=== PATIENT | female | born 1950 | race Caucasian/White ===

== ENCOUNTER 2019-06-29 03:47 | Outpatient (CLI) | payer MEDICARE, BC, SELFPAY ==
--- NOTE | 2019-06-29 11:24 | DI.MAMMO_ITS ---
SYMPTOMS/DIAGNOSIS: SCREENING, Z12.39 MAMMOGRAM: Mammograms were interpreted according to the usual protocol including computer analysis with CAD system, tomosynthesis and C view imaging. The breasts are of moderate density with fairly symmetrical distribution of fibroglandular tissue. No dominant mass or clumped microcalcification is identified in either breast. Current examination is compared with previous examinations including January 2015 and there has been no gross interval change in appearance in comparison with the previous studies. CONCLUSION: No specific evidence of malignancy at this time. Routine screening examinations are suggested at yearly intervals due to the family history of breast carcinoma. Category 1, breast density category B. MQSA ASSESSMENT OF FINDINGS: Negative. Category 1. Patient will receive a letter notifying them of these results. BI-RADS category B. There are scattered areas of fibroglandular density.
== END 2019-06-29 04:07 ==
PROVIDERS: PCP Internal Medicine; Visit Provider Internal Medicine
DX: Z12.31 Encounter for screening mammogram for malignant neoplasm of breast (principal); Z80.3 Family history of malignant neoplasm of breast
CPT/HCPCS: 77063; 77067

== ENCOUNTER 2019-11-01 09:21 | Outpatient (CLI) | payer MEDICARE, BC, SELFPAY ==
[2019-11-01 10:36] LABS: Anion Gap 11.4 mmol/L (3-11); BUN 19 mg/dL (7-18); CO2 27.6 mmol/L (21.0-32.0); CREATININE 1.01 mg/dL (0.55-1.02); Calcium 9.4 mg/dL (8.5-10.1); Calculated LDL 259 mg/dL; Chloride 101 mmol/L (98-107); Cholesterol 325 mg/dL (<200); Estimated GFR 54.51 (mL/min/1.73m2); Glucose 127 mg/dL (74-106); HDL Cholesterol 33 mg/dL (40-60); Potassium 4.2 mmol/L (3.5-5.1); Sodium 140 mmol/L (136-145); Triglyceride 168 mg/dL (<150)
[2019-11-02 10:26] LABS: TSH 3.53 uIU/mL (0.36-3.74)
== END 2019-11-01 09:41 ==
PROVIDERS: PCP Internal Medicine; Visit Provider Internal Medicine
DX: I10 Essential (primary) hypertension (principal); R63.5 Abnormal weight gain
CPT/HCPCS: 36415; 80048; 80061; 84443

== ENCOUNTER 2021-09-05 04:03 | Outpatient (CLI) | payer MEDICARE, BC, SELFPAY ==
[2021-09-05 11:33] LABS: Anion Gap 11.3 mmol/L (3-11); BUN 23 mg/dL (7-18); CO2 27.7 mmol/L (21.0-32.0); Calcium 9.9 mg/dL (8.5-10.1); Calculated LDL 132 mg/dL (<100); Chloride 102 mmol/L (98-107); Cholesterol 195 mg/dL (<200); Estimated GFR 54.81 (mL/min/1.73m2); Glucose 146 mg/dL (74-106); HDL Cholesterol 38 mg/dL (40-60); Potassium 4.2 mmol/L (3.5-5.1); Sodium 141 mmol/L (136-145); Triglyceride 129 mg/dL (<150)
[2021-09-05 18:40] LABS: Microalb ug/mg Crea 772.2 ug/mg Cr
== END 2021-09-05 04:04 | disposition home or self-care (01) ==
LOC: LBO 04:03
PROVIDERS: PCP Internal Medicine; Visit Provider Internal Medicine
DX: E11.9 Type 2 diabetes mellitus without complications (principal); E78.00 Pure hypercholesterolemia, unspecified; E78.5 Hyperlipidemia, unspecified; I10 Essential (primary) hypertension
CPT/HCPCS: 36415; 80048; 80061; 82043; 82570

== ENCOUNTER 2021-10-03 00:22 | Outpatient (CLI) | payer MEDICARE, BC, SELFPAY ==
--- NOTE | 2021-10-03 07:15 | DI.MAMMO_ITS ---
Exam(s) MAMMO SCREENING EXAM: MAMMO SCREENING CLINICAL HISTORY: screening,z12.39 TECHNIQUE: Bilateral full field digital CC and MLO mammographic images were obtained with 3D tomosyn thesis and utilizing computer aided detection (CAD). COMPARISON: Available for comparison. FINDINGS: Masses/Architectural Distortion: None seen. Microcalcifications: No suspicious pleomorphic-type are seen. Skin Thickening/Nipple Retraction: None. IMPRESSION: 1. No significant interval change with no specific features of malignancy noted. 2. Unless there is more urgent need, screening mammography is recommended, as per [employer] guidelines. BI-RADS Category 1 - Negative Breast Density - Category B - Scattered areas of fibroglandular density Breast density category C or D implies that the patient has dense breast tissue. Dense breast tissue is very common and is not abnormal but dense breast tissue can make it harder to find cancer on a ma mmogram. Also, dense breast tissue may increase their breast cancer risk. This information about the result of the mammogram report was provided to the patient to raise their awareness. Use this report when you speak with the patient about their risks for breast cancer, which includes their family hist ory. At that time, you may recommend for more screening tests (Ultrasound or MRI) as they might be us eful based on their risk. A negative radiographic report should not delay biopsy if a dominant or clinically suspicious mass is present. Up to ten percent of cancers are not identified on mammography. A negative report may reinforce clinical impression. Adenosis and dense breasts may obscure an underlying neoplasm. False positive reports average 6 to 10%. Patient will receive a letter notifying them of these results.
== END 2021-10-03 00:42 ==
PROVIDERS: PCP Internal Medicine; Visit Provider Internal Medicine
DX: Z12.31 Encounter for screening mammogram for malignant neoplasm of breast (principal)
CPT/HCPCS: 77063; 77067

== ENCOUNTER → 2021-10-16 10:53 | Outpatient (BNVA) | payer MEDICARE, BC, SELFPAY | PROVIDERS: PCP Internal Medicine; Referring Provider Internal Medicine; Visit Provider Physical Therapy Assistant | DX: R19.5 Other fecal abnormalities (principal); I10 Essential (primary) hypertension; E11.9 Type 2 diabetes mellitus without complications; Z86.010 Personal history of colon polyps; L43.9 Lichen planus, unspecified; Z80.0 Family history of malignant neoplasm of digestive organs | CPT/HCPCS: 99203 ==

== ENCOUNTER 2021-11-17 03:08 | Outpatient (CLI) | payer MEDICARE, BC, SELFPAY | END 2021-11-17 03:09 | disposition home or self-care (01) | LOC: LBO 03:09 | PROVIDERS: PCP Internal Medicine; Visit Provider Surgery | DX: Z20.822 Contact with and (suspected) exposure to COVID-19 (principal) | CPT/HCPCS: 87635 ==

== ENCOUNTER 2021-11-18 12:23 | Day surgery (SDC) | payer MEDICARE, BC, SELFPAY ==
[2021-11-17 10:47] LABS: Source Nasal/Nares
[2021-11-17 13:15] LABS: COVID-19 PCR Negative (Negative)
--- NOTE | 2021-11-17 21:07 | W.COLOREPORT ---
Colonoscopy Report Date of procedure: 11/18/21 Pre-op diagnosis general: family hx of CRC/+Cologuard Post-op diagnosis procedure note: other (multiple polyps/diverticul) Surgeon: Catherine Lindsay Anesthesia Type: General:No Airway Estimated blood loss (mL): 4 Pathology: other Complications: None Disposition: same day Prep: Miralax/Dulcolax Retraction Time: 30 Procedure Description: After informed consent was obtained the patient was taken to the procedure room and placed in a left decubitous position. Monitors were applied and a time out was done. The patients name, date of , procedure, allergies to medications and metal in their body was reviewed. The patient was then sedated. Once sedated and comfortable a rectal exam was done. External exam was normal. Internal exam revealed a normal sphincter tone and no palpable masses. The scope was then introduced and retrofelexed. No internal hemorrhoids were identified. The scope was then advanced to the cecum w/out difficulty. The TI and appendiceal orifice were identified. The prep was BBPS-1 throughout the entire colon.. The scope was then slowly retracted over 30 minutes back into the rectum. He has small scattered diverticular disease throughout the entire colon. There is no signs of bleeding or infection. She had multiple polyps removed. She had a 0.75 cm flat polyp at 80 cm. This is removed by hot snare. She had a 5 mm flat polyp at 70 cm. This was removed with a cold forcep. She had a 5 mm flat polyp in the rectum and this is removed with cold snare. She had a large 2.5 cm pedunculated polyp at 20 cm. This is removed with a hot snare clip is placed. She had 3 5 mm pedunculated polyps at 20 cm. These are removed with a hot biopsy forcep. She had 4 small flat 5 mm polyps at 20 cm that are removed with a cold forcep. All specimen is retrieved and no bleeding is noted. the scope was removed and the patient was woken up and taken back to Same day surgery in stable condition. The patient tolerated the procedure well and there were no immediate complications. Follow up: The patient should follow up in my office in 2 to 3 weeks time and we will review the pathology. Most likely she will need to follow-up in 1 years time. Years unless they develop changes in bowel habits or other new gastrointestinal complaints.
--- NOTE | 2021-11-17 21:08 | W.PM.HP.N ---
Date of service: 11/18/21 Assessment and Plan Assessment and plan (1) Positive colorectal cancer screening using Cologuard test: Status: Acute Assessment and plan: Plan:Colonscopy w/ MAC The patient will be scheduled by my office. The pt understands that they need to do a bowel prep and the importance of hydration during this. The patient understands there is a theoretical risk of renal failure. For healthy patients we use Gatorade/Miralax Prep. For anyone with renal concerns- GoLytely will be used. Plavix and coumadin will need to be held except in unusual circumstances. Patients in A. Fib do not need to be bridged with Lovenox or on CVA prophylaxis. A baby ASA can be continued but full dose ASA needs to be stopped for 10 days prior to the procedure. Thank you for allowing me to participate in the care of this Patient. A copy of the Endoscopy report will be forwarded to your office. Informed consent is obtained for the procedural (explained in simple layman's terms that the pt and/or family could understand) explaining risks vs benefits and alternatives to the procedure and consequences if we do not do the procedure and need/rational for the procedure. Risks include but are not limited to: bleeding, infection, perforation of colon. This would necessitate emergency surgery to repair the damage w/ possible ostomy; and other associated complications w/ the required surgery. Also complications of anesthesia including aspiration, VA/CVA/. I discussed with the patient would they could expect during the procedure, post procedure and recovery time and risks. The patient understands that they need to have a ride home after the procedure. The patient was given all this information in writing and expressed understanding. to your office. If there are any questions or concerns please feel free to contact our office. (2) Type 2 diabetes mellitus with microalbuminuria, without long-term current use of insulin: Status: Acute (3) Obstructive sleep apnea syndrome: Status: Acute (4) Family hx of colon cancer: Status: Acute History of Present Illness Narrative: 70 y/o female with history of Lichen Planus, HTN, Type 2 DM and ELANA presents for colonoscopy pre-op following a positive Cologuard result. . Her last screening was in 2006, which was remarkable for hyperplastic polyp. She reports a family history of colon cancer in her paternal grandmother. She denies any changes in bowel habits including bloody or black tarry stools, abdominal pain, diarrhea or constipation. She reports that her lichen planus effects her anus which sometimes causes bleeding. She denies constitutional symptoms. Denies use of marijuana or any other recreational or illegal drugs. She denies chest pain, palpitations, dyspnea or dyspnea with exertion. She denies prior history or family history of adverse reactions or complications with anesthesia. The patient denies any history of stroke, VA, seizures, bleeding or clotting disorders. She has implanted metal in sravani. hips. PT has lichen planus and will occ notice blood on tissue when wiping. Not in the stool or toilet. PT also will have pain. No change in wt. No changes in bowel habits. PT completed a bowel prep. SHe did not some formed stool at 11am. Mother& brother both have diverticula. Denies currently chest pain or sob. She has had a dry cough for two wks. non productive. no fevers no changes in meds or health status. PFSH All Active Problems Family hx of colon cancer (Acute) Positive colorectal cancer screening using Cologuard test (Acute) Type 2 diabetes mellitus with microalbuminuria, without long-term current use of insulin (Acute ~09/07/21) Obstructive sleep apnea syndrome (Acute 01/31/13) no treatment pursued by Pt per Nusrat Wallis NP DDD (degenerative disc disease), lumbar (Acute 07/30/16) Atrophic vaginitis (Acute 09/08/12) Medical History Atrophic vaginitis Cervicalgia Essential hypertension (11/17/11) Hyperlipidemia Hypertension Other and unspecified hyperlipidemia (11/17/11) LDL TARGET 130; LOW HDL 33 Primary osteoarthritis of left hip [facility]. Office visit 11/04/2017 Primary osteoarthritis of right hip (07/30/16) 04/04/18 ATHA/LR Psoriasis Surgical History Tonsillectomy Total replacement of hip (04/04/18) Left- [facility] Total replacement of hip (12/01/16) Right Family History (Updated 09/16/15 @ 09:18 by Corinna Shoemaker MD) Mother , heart issues at age 84. No problems noted. Father , kidney ca at age 87. No problems noted. 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 Current gender identity: female What is your relationship status?: How often do you talk on the phone with friends or family?: three or more times per week Panel score (0-1 are the most socially isolated patients): 2 What type of physical activity do you participate in: none and regular exercise Duration: 30-45 minutes/day Frequency: other Details: works in yard Seatbelt use: always Drive intox or ride w/intox bung driver: No Working smoke detector in home: Yes Fire extinguisher in home: Yes Carbon monox detector in home: Yes Do you feel safe at home: Yes Do you feel safe in your relationship?: Yes Meds Allergies and Home Medications Allergies Allergy/AdvReac Type Severity Reaction Status Date / Time Penicillins AdvReac Unknown RASH with Verified 11/18/21 12:57 topical penicillin, maybe Home Medications Medication Instructions Recorded Confirmed Type naproxen sodium [Aleve] 220 mg PO BID PRN 03/08/18 11/18/21 History atorvastatin 40 mg tablet 40 mg PO DAILY #90 tab 09/07/21 11/18/21 Rx lisinopril 2.5 mg tablet 2.5 mg PO DAILY #90 tab 09/07/21 11/18/21 Rx vitamins-lipotropics tablet 2 tab PO BID tab 09/09/21 11/18/21 History bisacodyl 5 mg tablet,delayed 5 mg PO ONCE #4 tab 10/16/21 11/18/21 Rx release polyethylene glycol 3350 17 17 g PO ONCE #238 g 10/16/21 11/18/21 Rx gram/dose oral powder hydrochlorothiazide 25 mg tablet 25 mg PO DAILY #90 tab-cap 11/12/21 11/18/21 Rx Exam Const General: cooperative, healthy appearing, comfortable, no acute distress, well developed and well groomed Nutritional Appearance: average body habitus and well nourished Orientation: alert, awake and oriented x3 [facility] Head: normal to inspection, normocephalic and atraumatic Ears: hearing grossly normal bilaterally and external ears normal General nose exam: external nose normal Face and sinus: normal facial exam and sinuses nontender Mouth: oral mucosae normal, lip normal, tongue normal and moist mucous membranes Teeth and gingiva: dentition normal Eyes General: appearance normal, both eyes and all related structures Conjunctivae: conjunctivae normal Sclera: sclerae normal Pupils: PERRL Neck Neck: normal visual inspection and full ROM Chest Chest: normal inspection of the chest Resp Effort & Inspection: normal respiratory effort, able to speak in complete sentences, no cough, no nasal flaring, not tachypneic and no use of accessory muscles Auscultation: clear to auscultation bilaterally, no rales, no rhonchi and no wheezes Cardio Jugular venous pressure: no JVD Rate: regular rate Rhythm: regular rhythm GI Inspection: normal to inspection, no edema and non-distended Palpation: soft, no masses, nontender and No ascites Auscultation: normal bowel sounds Skin General skin exam: no rashes or lesions noted Trauma: no lacerations or abrasions Neuro General: patient alert, patient oriented x3, oriented, gait normal, moves all extremities, no focal motor deficits and CN's II-XI intact bilaterally Cognition: normal cognition Speech: speech normal Gait: normal gait Motor: muscle tone normal throughout Extrem General: normal to inspection, full ROM and no clubbing, cyanosis or edema Psych Appearance: grossly normal and well kempt Mental Status: mental status grossly normal Speech and Movement: speech and movement normal Affect: normal affect Results Labs Labs: Laboratory Results - last 24 hr 11/17/21 08:41 COVID-19 Source Nasal/Nares SARS-CoV-2 (PCR) Negative
--- NOTE | 2021-11-17 21:17 | PDOC.DSDIS_ITS ---
Discharge Plan Disposition Patient Disposition: HOME Condition: Good Discharge Details Reason For Visit: colon scope Attending Provider: Catherine Lindsay Primary Care Provider: Ivonne Altamirano Home Meds and New Rx's Prescriptions: Continued vitamins-lipotropics Tablet 2 tab PO BID RF: 0 lisinopril 2.5 mg tablet 2.5 mg PO DAILY Qty: 90 RF: 3 atorvastatin 40 mg tablet 40 mg PO DAILY Qty: 90 RF: 3 hydrochlorothiazide 25 mg tablet 25 mg PO DAILY Qty: 90 RF: 3 Discontinued bisacodyl [Dulcolax (bisacodyl)] 5 mg tablet,delayed release (DR/EC) 5 mg PO ONCE Qty: 4 RF: 0 polyethylene glycol 3350 17 gram/dose powder 17 g PO ONCE Qty: 238 RF: 0 naproxen sodium [Aleve] 220 MG capsule 220 mg PO BID PRNRF: 0 Discharge Instructions Additional Instructions: DSU Colonoscopy Post- Op Instructions Instructions for Everyone who is given Anesthesia: For your safety, please do the following for the next twenty-four (24) hours: *Do Not operate a motor vehicle (car, truck, motorcycle, etc.) *Do Not drink alcoholic beverages or use any recreational drugs for the first 72 hours or while taking pain medications. The medications in your body may have a reaction that can be dangerous. *Do Not make any important decisions or sign any important papers. -No ASA/NSAID's for 2 weeks. Tylenol is ok. Findings: multiple polyps Diverticula Follow up: Dr. Lindsay in 2 wks time. My office will call tomorrow w/ an appt. 1. No lifting over 20 pounds or strenuous activity for the first 72 hours after your procedure. After 72 hours there are no restrictions on your activity but you may feel fatigued for a few days. 2. After you arrive home you may have a light meal and return to your normal diet as you can tolerate it without feeling sick to your stomach. 3. You may have a bloated, gaseous feeling in your belly (abdomen) after a colonoscopy. Passing gas and belching will help. Walking or lying down on your left side with your knees flexed may relieve the discomfort. Call the office at [phone] (Office) or [phone] (Hospital) right away if you notice any of the following: a.Vomiting of blood or ?coffee ground stools?. b.Rectal bleeding 1Tbsp, blood clots or continuous bleeding. c.Severe belly (abdominal) pain. d.A hard distended belly (abdomen) and an inability to pass gas. 4. Please don?t expect to have a normal BM (bowel movement) for 2-3 days after your procedure. 5. If there are questions regarding the findings of your procedure, please contact your doctor 6. If you are unable to contact your doctor with a problem, contact the hospital at [phone]. 7. Continue all your regular medications unless directed otherwise. I understand the above instructions and have no questions. Signature of Patient or Adult Escort Name of Responsible Adult Escort Signature of Nurse Date/Time Activity:: see above Diet:: Carb Counting Discharge Orders Discharge Orders: Discharge Order (Routine); Ordered 11/17/21 Ordered By: Catherine Lindsay DS: Diagnosis Discharge Diagnosis (1) Positive colorectal cancer screening using Cologuard test: Status: Acute (2) Type 2 diabetes mellitus with microalbuminuria, without long-term current use of insulin: Status: Acute (3) Obstructive sleep apnea syndrome: Status: Acute (4) Family hx of colon cancer: Status: Acute
[2021-11-18 12:33] VITALS: RESP 16; TEMP 36.5; O2SAT 97
[2021-11-18 12:37] VITALS: RESP 16; TEMP 36.5; O2SAT 97
[2021-11-18 12:46] VITALS: BP 149/89; PULSE 87; RESP 16; TEMP 36.5; O2SAT 97
[2021-11-18] MEDS: Lactated Ringers 1,000 ML 80 ML IV (13:16)
--- NOTE | 2021-11-18 13:37 | ANES.PREOP_ITS ---
General Info Date of Service Date Performed: 11/18/21 Height: 5 ft 7 in Weight: 99.3 kg Body Mass Index (BMI): 34.2 Surgical Procedure: Operation Date: 11/18/21 11:20 Proposed Procedures Side Surgeon david Lindsay, Meds Allergies and Home Medications Allergies Allergy/AdvReac Type Severity Reaction Status Date / Time Penicillins AdvReac Unknown RASH with Verified 11/18/21 12:57 topical penicillin, maybe Home Medication Medication Instructions Recorded atorvastatin 40 mg tablet 40 mg PO DAILY #90 tab 09/07/21 lisinopril 2.5 mg tablet 2.5 mg PO DAILY #90 tab 09/07/21 vitamins-lipotropics tablet 2 tab PO BID tab 09/09/21 hydrochlorothiazide 25 mg tablet 25 mg PO DAILY #90 tab-cap 11/12/21 Current Visit Medications: Current Medications Generic Name Dose Route Start Last Admin Trade Name Freq PRN Reason Stop Dose Admin Hyoscyamine Sulfate 0.125 mg 11/17/21 21:04 Hyoscyamine 0.125 Mg Sl/Oral/Chew SL DIRECTED PRN Ringer's Solution 1,000 mls @ 80 mls/hr 11/18/21 06:00 11/18/21 13:16 IV 12/17/21 23:59 80 mls/hr INFUSION JUAN JOSE Administration IV Miscellaneous Supplies 1 each 11/18/21 06:00 Iv Access IV 12/17/21 23:59 DIRECTED JUAN JOSE Ondansetron HCl 4 mg 11/17/21 21:04 Ondansetron 4 Mg/2 Ml Vial IVP Q4H PRN PRN Nausea / Vomiting Sodium Chloride 0 ml 11/18/21 06:00 Normal Saline Flush 10 Ml Syr IV 12/17/21 23:59 PRN PRN Sodium Chloride 0 ml 11/18/21 06:00 Normal Saline 10 Ml Vial IJ 12/17/21 23:59 DIRECTED PRN Sterile Water 0 ml 11/18/21 06:00 Water,Injection,Sterile 10 Ml Vial IJ 12/17/21 23:59 DIRECTED PRN PFSH Active Problems Active Problems: Problem Status Onset Code Family hx of colon cancer Z80.0 Positive colorectal cancer screening using Cologuard test R19.5 Type 2 diabetes mellitus with microalbuminuria, without long-term current use of insulin ~09/07/21 E11.29, R80.9 Obstructive sleep apnea syndrome 01/31/13 G47.33 DDD (degenerative disc disease), lumbar 07/30/16 M51.36 Atrophic vaginitis 09/08/12 N95.2 Medical History Medical History Atrophic vaginitis Cervicalgia Essential hypertension (11/17/11) Hyperlipidemia Hypertension Other and unspecified hyperlipidemia (11/17/11) LDL TARGET 130; LOW HDL 33 Primary osteoarthritis of left hip [facility]. Office visit 11/04/2017 Primary osteoarthritis of right hip (07/30/16) 04/04/18 ATHA/LR Psoriasis Medical History Comments:: Pt. reports smoking marijuana 11/17/21. No marijuana today. Surgical History Surgical History Tonsillectomy Total replacement of hip (04/04/18) Left- [facility] Total replacement of hip (12/01/16) Right Tobacco Smoking/Tobacco Use Status: Never Alcohol Alcohol Intake: current Alcohol intake frequency: a few times a month Alcohol type: beer Substance Use Substance use: Daily Substance use type: marijuana Details: Smoked marijuana 11/17/21 Vital Signs and Lab Results Vital Signs Most Recent Vital Signs in EMR: Most Recent Vital Signs Temp Pulse Resp BP Pulse Ox 36.5 C 87 16 149/89 H 97 11/18/21 12:46 11/18/21 12:46 11/18/21 12:46 11/18/21 12:46 11/18/21 12:46 Lab Results Blood Type / Crossmatch: No Data to Display Complete Blood Count: No Data to Display Complete Metabolic Panel: No Data to Display Liver Function Panel: No Data to Display Coagulation Panel: No Data to Display Cardiac Panel: No Data to Display Arterial Blood Gas: No Data to Display Venous Blood Gas: No Data to Display Pancreas Panel: No Data to Display Thyroid Panel: No Data to Display Infectious Disease: Coronavirus (COVID-19)(PCR) Negative (Negative) 11/17/21 08:41 11/17/21 Coronavirus 2019 Source Nasal/Nares 11/17/21 08:41 11/17/21 Blood Cultures: No Data to Display Toxicology Panel: No Data to Display Anesthesia Assessment and Plan Anesthesia History Personal History: No History of Anesthesia Complications Family History: No Family History of Anesthesia Complications Exercise Tolerance Exercise Tolerance: Metabolic Equivalents>4 Pertinent Negatives Pertinent Negatives: No Symptoms of GERD Cardiac & Pulmonary Exam Cardiac Exam: Normal S1/S2 Heart Sounds Pulmonary Exam: Clear Bilateral Breath Sounds Implantable Cardiac Device Does patient have a Pacemaker or an ICD?: No Airway Exam Known Difficult Airway: No Mallampati Class: 2 Mouth Opening: Normal (> 3cm) Thyromental Distance: Greater than 3 cm Neck Range of Motion: Full ROM Neck Circumference: Normal Teeth Condition: Normal Dentition ASA Classification ASA Score: ASA 2 Emergency Case?: No NPO Status NPO Status: NPO Clears >2 hours, Solids >8 hours Anesthesia Plan Resuscitation Status: Full Code Anesthesia Technique: General Anesthesia Airway Planned: Natural Airway Monitors Used: Standard Monitors
--- NOTE | 2021-11-18 14:36 | BOWEL_PTH ---
PATIENT: Nusrat Moreland LOC: [facility] U#:[id number] AGE/SX: 71/F ROOM: RE11/18/[address]: Catherine Lindsay : 1950 BED: DIS: 11/18/2021 SPEC #: [id number] RECD: 11/18/21 16:26 STATUS: FARZANEH REIrma #: [id number] BHARGAV: 11/18/21 14:[address]: Catherine Lindsay DEPT: Surgical Specimen RECD BY: Flakita Summers ENTERED: 11/18/21 16:27 SP TYPE: Bowel OTHR DR: Ivonne Altamirano MD Tissues: 1 - BIOPSY BOWEL 2 - BIOPSY BOWEL 3 - BIOPSY BOWEL 4 - BIOPSY BOWEL Procedures: GROSS AND MICRO LEVEL 4 Comments: [id number]
[2021-11-18 15:10] VITALS: BP 142/73; PULSE 87; RESP 20; TEMP 35.9; O2SAT 96
--- NOTE | 2021-11-18 15:29 | W.ANESPOSTOP ---
Postoperative Evaluation Date, Time and Location Date Performed: 11/18/21 Time Performed: 15:29 Patient Location: Day Surgery Unit Vital Signs Most Recent Imported Vital Signs: Most Recent Vital Signs Temp Pulse Resp BP Pulse Ox 35.9 C L 87 20 142/73 H 96 11/18/21 15:10 11/18/21 15:10 11/18/21 15:10 11/18/21 15:10 11/18/21 15:10 Pain Score Most Recent Pain Score: Most Recent Pain Score Pain Level 0 11/18/21 15:10 Assessment Mental Status: Awake (Alert & Oriented to Patient Baseline) Airway and Respiratory Function: Patent airway with normal (patient baseline) respiratory exam Cardiovascular Function: Hemodynamically Stable Hydration Status: Adequately Hydrated Nausea & Vomiting: No Nausea or Vomiting Pain: Pt. Denies Any Pain Peripheral Nerve Block: Patient did not receive a nerve block Teaching Patient Teaching: Discussed the importance of using CPAP/BiPAP during any sleep period (By DSU RN)
[2021-11-18 15:33] VITALS: BP 144/68; PULSE 78; RESP 16; TEMP 36; O2SAT 98
[2021-11-19 07:11] VITALS: BMI 34.2
== END 2021-11-18 16:39 | disposition home or self-care (01) ==
LOC: SUR 12:23
PROVIDERS: PCP Internal Medicine; Visit Provider Surgery
PROC: 0DJD8ZZ Inspection of Lower Intestinal Tract, Via Natural or Artificial Opening Endoscopic (ICD-10-PCS; CPT 45378; principal; 2021-11-18 11:15)
DX: R19.5 Other fecal abnormalities (principal); D12.5 Benign neoplasm of sigmoid colon; Z80.0 Family history of malignant neoplasm of digestive organs; E11.9 Type 2 diabetes mellitus without complications; G47.33 Obstructive sleep apnea (adult) (pediatric); I10 Essential (primary) hypertension; K63.5 Polyp of colon; K62.1 Rectal polyp
CPT/HCPCS: 45380; 88305; J2001

== ENCOUNTER → 2021-12-04 15:24 | Outpatient (BNVA) | payer MEDICARE, BC, SELFPAY | PROVIDERS: PCP Internal Medicine; Referring Provider Internal Medicine; Visit Provider Surgery | DX: Z48.815 Encounter for surgical aftercare following surgery on the digestive system (principal); Z80.0 Family history of malignant neoplasm of digestive organs; D12.6 Benign neoplasm of colon, unspecified | CPT/HCPCS: 99212; 99213 ==

== ENCOUNTER 2022-10-14 01:44 | Outpatient (CLI) | payer MEDICARE, BC, SELFPAY ==
[2022-10-14 09:33] LABS: Hemoglobin A1C 5.3 % (<5.7)
[2022-10-14 09:36] LABS: COMMENT (LAB VIEW ONLY) 62.09 mg/dL; Microalb ug/mg Crea 7.7 ug/mg Cr
[2022-10-14 09:39] LABS: Anion Gap 7.5 mmol/L (3-11); BUN 19 mg/dL (7-18); CO2 30.5 mmol/L (21.0-32.0); CREATININE 0.9 mg/dL (0.55-1.02); Calcium 9.8 mg/dL (8.5-10.1); Calculated LDL 104 mg/dL (<100); Chloride 102 mmol/L (98-107); Cholesterol 176 mg/dL (<200); Estimated GFR 68.35 (mL/min/1.73m2); Glucose 91 mg/dL (74-106); HDL Cholesterol 49 mg/dL (40-60); Potassium 3.6 mmol/L (3.5-5.1); Sodium 140 mmol/L (136-145); Triglyceride 116 mg/dL (<150)
== END 2022-10-14 01:45 | disposition home or self-care (01) ==
LOC: LBO 01:44
PROVIDERS: PCP Internal Medicine; Visit Provider Nurse Practitioner Adult Health
DX: R80.9 Proteinuria, unspecified (principal); E11.29 Type 2 diabetes mellitus with other diabetic kidney complication
CPT/HCPCS: 36415; 80048; 80061; 82043; 82570; 83036

== ENCOUNTER → 2022-11-16 13:52 | Outpatient (BNVA) | payer MEDICARE, BC, SELFPAY | PROVIDERS: PCP Nurse Practitioner Adult Health; Referring Provider Nurse Practitioner Adult Health; Visit Provider Surgery | DX: D12.6 Benign neoplasm of colon, unspecified (principal); Z12.11 Encounter for screening for malignant neoplasm of colon | CPT/HCPCS: 99212 ==

== ENCOUNTER 2023-01-26 06:08 | Day surgery (SDC) | payer MEDICARE, BC, SELFPAY ==
--- NOTE | 2023-01-25 11:04 | W.PM.HP.N ---
Date of service: 01/26/23 Time of Service: 07:28 Assessment and Plan Assessment and plan (1) Tubulovillous adenoma polyp of colon: Status: Acute Assessment and plan: Plan: Colonoscopy w/ general & natural airway. Informed consent is obtained for the procedural (explained in simple layman's terms that?the pt and/or family could understand) explaining risks vs benefits and alternatives to the procedure and consequences if we do not do the procedure and need/rational for the procedure. Risks include but are not limited to: bleeding, infection, perforation of colon.? This would necessitate emergency surgery to repair the damage w/ possible ostomy; and other associated complications w/ the required surgery. ? Also complications of anesthesia including aspiration, VA/CVA/, inability to complete the procedure. I discussed with the?patient would they could expect during the procedure, post procedure and recovery time and risks.? The patient understands that they need to have a ride home after the procedure.? The patient was given all this information in writing and expressed understanding. If there are any questions or concerns please feel free to contact our office.? Generally Colonoscopy does not require antibiotics prophylaxis, (2) Hypertension: Status: Chronic Qualifiers: Hypertension type: essential hypertension Qualified Code(s): I10 - Essential (primary) hypertension (3) Other and unspecified hyperlipidemia: Status: Chronic (4) Type 2 diabetes mellitus with microalbuminuria, without long-term current use of insulin: Status: Chronic History of Present Illness Narrative: RN:?Pt had colonoscopy 11/17/21 which showed large tubulovillious, repeat in 1 yr was recommended. ?Pt has? had colon cancer screening before.? They denies problems with constipation or diarrhea.? They deny any pain or difficulty with bowel movements, or rectal bleeding.? There is no family history of any colon cancer.? Pt has not had any unexplained weight loss.? Their appetite is good.? ?They deny heart, lung, or kidney problems. They are not having heartburn or indigestion. They have not had any prior colo-rectal surgery.? The patient? has not had a prior SHERI.? They deny any problems with anesthesia in the past. She had no problems with the prep for the procedure last time. CE:?he scope was then introduced and retrofelexed.? No internal hemorrhoids were identified. The scope was then? advanced to the cecum w/out difficulty.? The TI and appendiceal orifice were identified.? The prep was BBPS-1 throughout the entire colon..? The scope was then slowly retracted over 30 minutes back into the rectum.? He has small scattered diverticular disease throughout the entire colon.? There is no signs of bleeding or infection.? She had multiple polyps removed.? She had a 0.75 cm flat polyp at 80 cm.? This is removed by hot snare.? She had a 5 mm flat polyp at 70 cm.? This was removed with a cold forcep.? She had a 5 mm flat polyp in the rectum and this is removed with cold snare.? She had a large 2.5 cm pedunculated polyp at 20 cm.? This is removed with a hot snare clip is placed.? She had 3 5 mm pedunculated polyps at 20 cm.? These are removed with a hot biopsy forcep.? She had 4 small flat 5 mm polyps at 20 cm that are removed with a cold forcep.? All specimen is retrieved and no bleeding is noted. Path: Large polyp at 20 cm was? a villous. Anesthesia: general (without airway) Previous surgical intolerances: No Previous surgical complications: No Pulmonary risk factors: Date of surgery: Planned procedure: Yes Sleep apnea risks: No COPD/Asthma/Smoker: ELANA- doesn't use CPAP/also lost 60 #'s in the last yr. Can climb one flight of stairs (12-13 steps) in less than 30 seconds without stopping and without symptoms: Yes The surgery proposed for this patient is: low risk Active cardiac conditions: none Active risk factors: none ASA (acetylsalicylic acid): not used Beta blockers: not used Kidneys: no concerns DM:? diet & exercise. ? A1c? 5.3? -Patient was seen in clinic on . - Patient is here today for colonoscopy for villous adenoma that she had in 2021..??? They completed a bowel prep with some sediment still present. ? They not having any chest pain or shortness of breath, currently.? They are not experiencing any fever or chills.? They deny any productive cough or upper respiratory tract infection signs or symptoms.? They are not having abdominal pain, or nausea and vomiting.? They have not had any changes in medications, past medical history or past surgical history since previously being seen in the office. They have not had any accidents or have been in the ER since the clinic pre-operative evaluation. ??I reviewed the procedure with the patient today, including risks and benefits of the procedure, and what they could expect at home for recovery.? All questions are answered to the patient?s satisfaction today, and they are stable to proceed with the proposed procedure. she is having mild abdominal cramping. Review of Systems All systems reviewed & are unremarkable except as noted in HPI and below PFSH All Active Problems Hypertension (Chronic) Other and unspecified hyperlipidemia (Chronic 11/17/11) LDL TARGET 130; LOW HDL 33 Tubulovillous adenoma polyp of colon (Acute ~11/2021) Family hx of colon cancer (Acute) Type 2 diabetes mellitus with microalbuminuria, without long-term current use of insulin (Chronic ~09/07/21) DDD (degenerative disc disease), lumbar (Acute 07/30/16) Atrophic vaginitis (Acute 09/08/12) Medical History Atrophic vaginitis Cervicalgia Essential hypertension (11/17/11) Hyperlipidemia Obstructive sleep apnea syndrome (01/31/13) no treatment pursued by Pt per Nusrat Wallis NP Positive colorectal cancer screening using Cologuard test Primary osteoarthritis of left hip [facility]. 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) Left- [facility] Total replacement of hip (12/01/16) Right Family History Other Colon cancer Diabetes Heart disease Hyperlipidemia Kidney malignancy Stroke Social History Smoking/Tobacco Use Status: Never Smoking risk assessment performed?: Yes Alcohol Intake: current Alcohol Intake frequency: a few times a month Alcohol type: beer Drug use: Daily Substance use type: marijuana Details: last marijuana inhalation t-2 Household members: spouse Housing: house Number of Children: 2 number of grandchildren: 3 Communication Needs: None 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 Current gender identity: female What is your relationship status?: How often do you talk on the phone with friends or family?: three or more times per week Panel score (0-1 are the most socially isolated patients): 2 What type of physical activity do you participate in: none and regular exercise Duration: 30-45 minutes/day Frequency: other Details: works in [employer] Seatbelt use: always Drive intox or ride w/intox driver salesman: No Working smoke detector in home: Yes Fire extinguisher in home: Yes Carbon monox detector in home: Yes Do you feel safe at home: Yes Do you feel safe in your relationship?: Yes Meds Allergies and Home Medications Allergies Allergy/AdvReac Type Severity Reaction Status Date / Time Penicillins AdvReac Unknown RASH with Verified 01/26/23 06:20 topical penicillin, maybe Home Medications Medication Instructions Recorded Confirmed Type clindamycin phosphate 1 % topical 1 applic topical PRN 12/04/21 01/25/23 History solution fluocinolone 0.01 % topical 1 applic topical PRN 12/04/21 01/25/23 History solution ketoconazole 2 % topical cream 1 applic topical DAILY 12/04/21 01/25/23 History multivit with 1 tab PO DAILY 03/10/22 01/26/23 History lipmfhgy-xvkv-GM-lutein 8 mg iron-400 mcg-300 mcg tablet (Centrum Silver Women) atorvastatin 40 mg tablet See Rx Instructions .Route 07/29/22 01/26/23 Rx .COMPLEX #90 tabs lisinopril 2.5 mg tablet See Rx Instructions .Route 07/29/22 01/26/23 Rx .COMPLEX #90 tabs hydrochlorothiazide 25 mg tablet See Rx Instructions .Route 10/23/22 01/26/23 Rx .COMPLEX #90 tabs yaya sleep PO HS 11/16/22 11/19/22 History Exam Narrative Exam Narrative: PHYSICAL EXAM GENERAL APPEARANCE: Alert, healthy appearance, oriented, x 3,? in no acute distress HYDRATION: Well hydrated HEAD, EYES, EARS, NECK, THROAT: Head is normocephalic, pupils equal, round, reactive to light and accommodation, ocular movement intact, sclera clear and no jaundice. ?Patient had a mask on throughout the entirety of the visit. NECK: no lymphadenopathy.? Trachea midline.? Neck supple.? No JVD LUNGS: normal respiration/normal chest excursion. ?Clear to auscultation bilaterally. ?No wheeze. ?HEART: Regular rate and rhythm. + murmur ABDOMEN: soft and non-tender to palpation.? Normal bowel sounds.? mild cramping Const Other: PHYSICAL EXAM GENERAL APPEARANCE: Alert, healthy appearance, oriented, x 3,? in no acute distress HYDRATION: Well hydrated HEAD, EYES, EARS, NECK, THROAT: Head is normocephalic, pupils equal, round, reactive to light and accommodation, ocular movement intact, sclera clear and no jaundice. ?Dentition intact. NECK: Trachea midline.? Neck supple.? No JVD LUNGS: normal respiration/normal chest excursion. ?Clear to auscultation bilaterally. ?No wheeze. ?HEART: Regular rate and rhythm. no murmurs ABDOMEN: soft and non-tender to palpation.? Normal bowel sounds.? Time Spent Time spent with Patient: <40 minutes Time was spent: preparing to see the patient(eg.review tests), obtaining and/or reviewing separately otained hiistory, ordering medications,tests, procedures, referring, communicating with other health managed care provider and indepentently interpreting results
--- NOTE | 2023-01-25 21:00 | PDOC.DSDIS_ITS ---
Date of service: 01/26/23 Time of Service: 08:27 Discharge Plan Disposition Patient Disposition: Home Discharge Details Reason For Visit: colon scope Attending Provider: Catherine Lindsay Primary Care Provider: Rain Mistry Home Meds and New Rx's Prescriptions: Continued clindamycin phosphate 1 % solution 1 applic topical PRN fluocinolone 0.01 % solution 1 applic topical PRN ketoconazole 2 % cream 1 applic topical DAILY yaya sleep PO HS Centrum Silver Women 8 mg iron-400 mcg-300 mcg tablet 1 tab PO DAILY atorvastatin 40 mg tablet See Rx Instructions .ROUTE .COMPLEX Qty: 90 3RF Dose Instruction: Take 1 tablet by mouth daily. Rx Instructions: Take 1 tablet by mouth daily. lisinopril 2.5 mg tablet See Rx Instructions .ROUTE .COMPLEX Qty: 90 3RF Dose Instruction: Take 1 tablet by mouth daily. Rx Instructions: Take 1 tablet by mouth daily. hydrochlorothiazide 25 mg tablet See Rx Instructions .ROUTE .COMPLEX Qty: 90 2RF Hold Instructions: Home Medication placed on hold at Doctor's office Dose Instruction: Take 1 tablet by mouth daily. Rx Instructions: Take 1 tablet by mouth daily. Discontinued polyethylene glycol 3350 17 gram/dose powder 238 g PO ONCE Qty: 238 0RF Rx Instructions: take per colonoscopy instructions bisacodyl [Dulcolax (bisacodyl)] 5 mg tablet,delayed release (DR/EC) 5 mg PO ONCE Qty: 4 0RF Rx Instructions: take per colonoscopy instructions Discharge Instructions Additional Instructions: DSU Colonoscopy Post- Op Instructions Instructions for Everyone who is given Anesthesia: For your safety, please do the following for the next twenty-four (24) hours: *Do Not operate a motor vehicle (car, truck, motorcycle, etc.) *Do Not drink alcoholic beverages or use any recreational drugs for the first 24 hours or while taking pain medications. The medications in your body may have a reaction that can be dangerous. *Do Not make any important decisions or sign any important papers. Findings:perez-divertiuclar Dx small polyps Follow up: My office will send a letter in 2 to 3 weeks time detailing as to what type of polyps they were and when we want you to repeat colonoscopy between 3-5 yrs 1. No lifting over 20 pounds or strenuous activity for the first 24 hours after your procedure. After 24 hours there are no restrictions on your activity but you may feel fatigued for a few days. 2. After you arrive home you may have a light meal and return to your normal diet as you can tolerate it without feeling sick to your stomach. 3. You may have a bloated, gaseous feeling in your belly (abdomen) after a colonoscopy. Passing gas and belching will help. Walking or lying down on your left side with your knees flexed may relieve the discomfort. Call the office at [phone] (Office) or [phone] (Hospital) right away if you notice any of the following: a.Vomiting of blood or ?coffee ground stools?. b.Rectal bleeding 1Tbsp, blood clots or continuous bleeding. c.Severe belly (abdominal) pain. d.A hard distended belly (abdomen) and an inability to pass gas. 4. Please don?t expect to have a normal BM (bowel movement) for 2-3 days after your procedure. 5. If there are questions regarding the findings of your procedure, please contact your doctor 6. If you are unable to contact your doctor with a problem, contact the hospital at [phone]. 7. Continue all your regular medications unless directed otherwise. I understand the above instructions and have no questions. Signature of Patient or Adult Escort Name of Responsible Adult Escort Signature of Nurse Date/Time Activity:: see above Diet:: see above Discharge Orders Discharge Orders: Discharge Order (Routine); Ordered 01/26/23 Ordered By: Catherine Lnidsay DS: Diagnosis Discharge Diagnosis (1) Tubulovillous adenoma polyp of colon: Status: Acute (2) Hypertension: Status: Chronic (3) Other and unspecified hyperlipidemia: Status: Chronic (4) Type 2 diabetes mellitus with microalbuminuria, without long-term current use of insulin: Status: Chronic
[2023-01-26 06:23] VITALS: BP 152/80; PULSE 80; RESP 16; TEMP 36.5; O2SAT 98
[2023-01-26] MEDS: Lactated Ringers 1,000 ML 80 ML IV (06:45)
--- NOTE | 2023-01-26 07:02 | ANES.PREOP_ITS ---
General Info Date of Service Date Performed: 01/26/23 Height: 5 ft 7 in Weight: 73.6 kg Body Mass Index (BMI): 25.4 Surgical Procedure: Operation Date: 01/26/23 07:35 Proposed Procedure Side Surgeon david Lindsay, Meds Allergies and Home Medications Allergies Allergy/AdvReac Type Severity Reaction Status Date / Time Penicillins AdvReac Unknown RASH with Verified 01/26/23 06:20 topical penicillin, maybe Home Medication Medication Instructions Recorded clindamycin phosphate 1 % topical 1 applic topical PRN 12/04/21 solution fluocinolone 0.01 % topical 1 applic topical PRN 12/04/21 solution ketoconazole 2 % topical cream 1 applic topical DAILY 12/04/21 multivit with 1 tab PO DAILY 03/10/22 kvkaoolm-cmzj-UA-lutein 8 mg iron-400 mcg-300 mcg tablet (Centrum Silver Women) atorvastatin 40 mg tablet See Rx Instructions .Route 07/29/22 .COMPLEX #90 tabs lisinopril 2.5 mg tablet See Rx Instructions .Route 07/29/22 .COMPLEX #90 tabs hydrochlorothiazide 25 mg tablet See Rx Instructions .Route 10/23/22 .COMPLEX #90 tabs yaya sleep PO HS 11/16/22 Current Visit Medications: Current Medications Generic Name Dose Route Start Last Admin Trade Name Patricq PRN Reason Stop Dose Admin Hyoscyamine Sulfate 0.125 mg 01/26/23 07:01 Hyoscyamine 0.125 Mg Sl/Oral/Chew SL DIRECTED PRN Ringer's Solution 1,000 mls @ 80 mls/hr 01/26/23 06:00 01/26/23 06:45 IV 02/24/23 23:59 80 mls/hr INFUSION JUAN JOSE Administration IV Miscellaneous Supplies 1 each 01/26/23 06:00 Iv Access IV 02/24/23 23:59 DIRECTED JUAN JOSE Ondansetron HCl 4 mg 01/26/23 07:01 Ondansetron 4 Mg/2 Ml Vial IVP Q4H PRN PRN Nausea / Vomiting Sodium Chloride 0 ml 01/26/23 06:00 Normal Saline Flush 10 Ml Syr IV 02/24/23 23:59 PRN PRN Sodium Chloride 0 ml 01/26/23 06:00 Normal Saline 10 Ml Vial IJ 02/24/23 23:59 DIRECTED PRN Sterile Water 0 ml 01/26/23 06:00 Water,Injection,Sterile 10 Ml Vial IJ 02/24/23 23:59 DIRECTED PRN PFSH Active Problems Active Problems: Problem Status Onset Code Hypertension Other and unspecified hyperlipidemia 11/17/11 E78.5 Tubulovillous adenoma polyp of colon ~11/2021 D12.6 Family hx of colon cancer Z80.0 Type 2 diabetes mellitus with microalbuminuria, without long-term current use of insulin ~09/07/21 E11.29, R80.9 DDD (degenerative disc disease), lumbar 07/30/16 M51.36 Atrophic vaginitis 09/08/12 N95.2 Medical History Medical History Atrophic vaginitis Cervicalgia Essential hypertension (11/17/11) Hyperlipidemia Obstructive sleep apnea syndrome (01/31/13) no treatment pursued by Pt per Nusrat Wallis NP Positive colorectal cancer screening using Cologuard test Primary osteoarthritis of left hip [facility]. Office visit 11/04/2017 Primary osteoarthritis of right hip (07/30/16) 04/04/18 [facility] Psoriasis Medical History Comments:: Pt. states she has a chronic runny nose allergy related. 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/04/18) Left- [facility] Total replacement of hip (12/01/16) Right Tobacco Smoking/Tobacco Use Status: Never Alcohol Alcohol Intake: current Alcohol intake frequency: a few times a month Alcohol type: beer Substance Use Substance use: Daily Substance use type: marijuana Details: last marijuana inhalation t-2 Vital Signs and Lab Results Vital Signs Most Recent Vital Signs in EMR: Most Recent Vital Signs Temp Pulse Resp BP Pulse Ox 36.5 C 80 16 152/80 H 98 01/26/23 06:23 01/26/23 06:23 01/26/23 06:23 01/26/23 06:23 01/26/23 06:23 Point of Care Results Point of Care Results: Finger Stick Blood Glucose 91 01/26/23 06:31 Lab Results Blood Type / Crossmatch: No Data to Display Complete Blood Count: No Data to Display Complete Metabolic Panel: No Data to Display Liver Function Panel: No Data to Display Coagulation Panel: No Data to Display Cardiac Panel: No Data to Display Arterial Blood Gas: No Data to Display Venous Blood Gas: No Data to Display Pancreas Panel: No Data to Display Thyroid Panel: No Data to Display Infectious Disease: No Data to Display Blood Cultures: No Data to Display Toxicology Panel: No Data to Display Anesthesia Assessment and Plan Anesthesia History Personal History: No History of Anesthesia Complications Family History: No Family History of Anesthesia Complications Exercise Tolerance Exercise Tolerance: Metabolic Equivalents>4 Pertinent Negatives Pertinent Negatives: No Symptoms of GERD, No Major Cardiovascular Symptoms or Complaints and No Major Pulmonary Symptoms or Complaints Cardiac & Pulmonary Exam Cardiac Exam: Normal S1/S2 Heart Sounds Pulmonary Exam: Clear Bilateral Breath Sounds Implantable Cardiac Device Does patient have a Pacemaker or an ICD?: No Airway Exam Known Difficult Airway: No Mallampati Class: 2 Mouth Opening: Normal (> 3cm) Thyromental Distance: Greater than 3 cm Neck Range of Motion: Full ROM Neck Circumference: Normal Teeth Condition: Normal Dentition ASA Classification ASA Score: ASA 2 Emergency Case?: No NPO Status NPO Status: NPO Clears >2 hours, Solids >8 hours Anesthesia Plan Resuscitation Status: Full Code Anesthesia Technique: General Anesthesia Airway Planned: Natural Airway Monitors Used: Standard Monitors
[2023-01-26 07:06] VITALS: BMI 25.4
--- NOTE | 2023-01-26 08:00 | BOWEL_PTH ---
PATIENT: Nusrat Moreland LOC: [facility] U#:[id number] AGE/SX: 72/F ROOM: RE01/26/[address]: Catherine Lindsay : 1950 BED: DIS: 01/26/2023 SPEC #: [id number] RECD: 01/26/23 11:14 STATUS: FARZANEH REQ #: [id number] BHARGAV: 01/26/23 08:[address]: Catherine Lindsay DEPT: Surgical Specimen RECD BY: Flakita Summers ENTERED: 01/26/23 11:15 SP TYPE: Bowel OTHR DR: Rain Mistry, GRZEGORZ Tissues: 1 - BIOPSY BOWEL Procedures: GROSS AND MICRO LEVEL 4 Comments: [id number]
[2023-01-26 08:15] VITALS: BP 145/68; PULSE 82; RESP 17; TEMP 36.4; O2SAT 99
--- NOTE | 2023-01-26 08:30 | COLE_ITS ---
Date of service: 01/26/23 Time of Service: 08:30 Colonoscopy Report Date of procedure: 01/26/23 Pre-op diagnosis general: Villous adenoma Post-op diagnosis procedure note: other (Pandiverticular disease and polyps) Surgeon: Catherine Lindsay Anesthesia Type: General:No Airway Estimated blood loss (mL): 1 Pathology: other Complications: None Disposition: same day Prep: Miralax/Dulcolax Procedure Start Time: 07:45 Procedure End Time: 08:09 Retraction Time: 19 mins Procedure Description: After informed consent was obtained the patient was taken to the procedure room and placed in a left decubitous position. Monitors were applied and a time out was done. The patients name, date of , procedure, allergies to medications and metal in their body was reviewed. The patient was then sedated. Once sedated and comfortable a rectal exam was done. External exam was normal. Internal exam revealed a normal sphincter tone and no palpable masses. The scope was then introduced and retrofelexed. No internal hemorrhoids were identified. The scope was then advanced to the cecum without difficulty. The TI and appendiceal orifice were identified. The prep was BB PS 2 in all segments for total of 619. The scope was then slowly retracted over minutes back into the rectum. She has perez diverticulitis throughout the entirety of the colon. There is no signs of active bleeding or infection. She has x5 polyps at 20 cm. Two of these are 0.75 cm and flat, and are removed with a cold biting forcep. The other 3 are flat 5 mm polyps and are removed with a cold biting f orcep. All specimen is retrieved and no bleeding is noted. This corresponds to the area where she had the villous adenoma last time. The colon mucos is a normal healthy pink color and normal vascular pattern. The scope was removed and the patient was woken up and taken back to Same day surgery in stable condition. The patient tolerated the procedure well and there were no immediate complicati ons. Follow up: The patient should follow up in 3-5, path pd, years unless they develop changes in bowel habits or other new gastrointestinal complaints.
--- NOTE | 2023-01-26 08:31 | W.ANESPOSTOP ---
Postoperative Evaluation Date, Time and Location Date Performed: 01/26/23 Time Performed: 08:31 Patient Location: Day Surgery Unit Vital Signs Most Recent Imported Vital Signs: Most Recent Vital Signs Temp Pulse Resp BP Pulse Ox 36.5 C 80 16 152/80 H 98 01/26/23 06:23 01/26/23 06:23 01/26/23 06:23 01/26/23 06:23 01/26/23 06:23 Pain Score Most Recent Pain Score: Most Recent Pain Score Pain Level 0 01/26/23 06:23 Assessment Mental Status: Awake (Alert & Oriented to Patient Baseline) Airway and Respiratory Function: Patent airway with normal (patient baseline) respiratory exam Cardiovascular Function: Hemodynamically Stable Hydration Status: Adequately Hydrated Nausea & Vomiting: No Nausea or Vomiting Pain: Pt. Denies Any Pain Peripheral Nerve Block: Patient did not receive a nerve block
[2023-01-26 08:45] VITALS: BP 147/65; PULSE 77; RESP 17; TEMP 36.4; O2SAT 100
== END 2023-01-26 09:20 | disposition home or self-care (01) ==
LOC: SUR 06:09
PROVIDERS: PCP Nurse Practitioner Adult Health; Visit Provider Surgery
PROC: 0DJD8ZZ Inspection of Lower Intestinal Tract, Via Natural or Artificial Opening Endoscopic (ICD-10-PCS; CPT 45378; principal; 2023-01-26 07:30)
DX: Z12.11 Encounter for screening for malignant neoplasm of colon (principal); K63.5 Polyp of colon; K57.30 Diverticulosis of large intestine without perforation or abscess without bleeding; Z86.010 Personal history of colon polyps; E11.9 Type 2 diabetes mellitus without complications; G47.33 Obstructive sleep apnea (adult) (pediatric)
CPT/HCPCS: 45380; 88305

== ENCOUNTER 2023-04-09 00:49 | Outpatient (CLI) | payer MEDICARE, BC, SELFPAY ==
--- NOTE | 2023-04-09 07:30 | DI.US_ITS ---
APPROVED REPORT EXAM: Comprehensive 2D, Doppler, and color-flow Echocardiogram Patient Location: Out-Patient Stained Glass Window Designer: Chalo Parr RDMS, RVT Indications: holosystolic murmur (since childhood, per pt) Conclusion Normal left ventricular wall thickness and chamber size. Ejection fraction is 65%. Wall motion is n ormal Normal right ventricular size and systolic function Both atria are normal in size Aortic valve is trileaflet and sclerotic without stenosis or regurgitation There is no additional structural or hemodynamically significant valvular disease Wall motion Left Ventricle The left ventricle is normal size. The left ventricular systolic function is normal. The left ventric ular ejection fraction is within the normal range. There is normal left ventricular wall thickness. T here is normal LV segmental wall motion. There is no ventricular septal defect visualized. LVEF is 65 %. Right Ventricle The right ventricle is normal size. Right ventricular systolic function is grossly normal. Unable to assess PA pressure. Atria The left atrium size is normal. The right atrium size is normal. The interatrial septum is intact wit h no evidence for an atrial septal defect. Aortic Valve Aortic valve is trileaflet. The Aortic valve is sclerotic. No hemodynamically significant valvular ao rtic stenosis. No aortic regurgitation is present. Mitral Valve Mild mitral annular calcification. No evidence of mitral valve stenosis. Trivial mitral regurgitation . Tricuspid Valve The tricuspid valve is normal in structure. There is no tricuspid valve stenosis. Trace tricuspid reg urgitation. Pulmonic Valve The pulmonary valve is normal in structure. There is no pulmonic valvular stenosis. Trace to mild pul hayden regurgitation. Great Vessels The aortic root is normal in size. The ascending aorta is normal in size. Aortic arch is normal in ca liber. IVC is normal in size and collapses >50% with inspiration. Pericardium There is no pericardial effusion. 2D Dimensions IVSD d PLAX 0.68 cm F: 0.6-1.0 LV Vol A4C d MOD 121.5 mL LVPW d PLAX 0.69 cm F: 0.6 - 1.0 LA Area A4C s MOD 21.63 cm2 LVID d PLAX 3.42 cm F: 3.8 - 5.2 LV EF A4C MOD 57.2 % LVDs 2.45 cm F: 2.2 - 3.5 Ao Root d 2.88 cm F: 2.7 - 3.3 Ao Asc Diam d 2.76 cm F: 2.3 - 3.1 LV EF Ronyichholsophie 54.5 % FS 27.50 % LV Diastology E/A Ratio 1.0 MV E Vmax 0.72 (0.4-1.3 m/s) MV A Vmax 0.75 (0.4-1.3 m/s) MV E/A Ratio 0.91 Aortic Valve LVOT Area 3.03 cm2 AoV Area Vmax 1.91 cm2 LVOT Vmax 1.29 m/s WILLY Mean Kelvin. 1.72 cm2 LVOT Mean Kelvin. 0.86 m/s LVOT Peak Grad 6.7 mmHg LVOT Mean Grad 3.4 mmHg LVOT VTI 0.308 m LVOT Diam s 1.95 cm AoV Vmax 2.05 m/s Velocity Ratio 0.63 AoV Mean Kelvin. 1.51 m/s AoV Peak Grad 16.9 mmHg LVOT SV 93.30 mL AoV Mean Grad 10.2 mmHg AoV VTI 0.400 m AoV Area VTI 2.33 cm2 Mitral Valve MV DT 243 (160-240 msec) MV PHT 70 msec MV Area PHT 3.12 cm2 MV VTI 0.316 m MV Area VTI 2.96 (4.0-6.0 cm2) Pulmonary Valve PV Vmax 1.62 (0.5-1.5 m/s) RVOT Peak Gr. 1.95 mmHg PV Peak Grad 10.5 mmHg RVOT Mean Gr. 1.00 mmHg PV Mean Grad 5.2 mmHg RVOT VTI 0.144 m PV VTI 0.326 m RVOT Vmax 0.70 m/s
== END 2023-04-09 01:09 ==
LOC: DI 00:50
PROVIDERS: PCP Nurse Practitioner Adult Health; Visit Provider Surgery
DX: R01.1 Cardiac murmur, unspecified (principal)
CPT/HCPCS: 93306

== ENCOUNTER 2023-12-14 10:06 | Outpatient (CLI) | payer MEDICARE, BC, SELFPAY ==
[2023-12-14 10:27] LABS: Hemoglobin A1C 5.4 % (<5.7)
[2023-12-14 10:32] LABS: Anion Gap 7.8 mmol/L (3-11); BUN 34 mg/dL (7-18); CO2 28.2 mmol/L (21.0-32.0); Calculated LDL 114 mg/dL (<100); Chloride 104 mmol/L (98-107); Cholesterol 188 mg/dL (<200); Estimated GFR 59.49 (mL/min/1.73m2); Glucose 101 mg/dL (74-106); HDL Cholesterol 55 mg/dL (40-60); Potassium 4.1 mmol/L (3.5-5.1); Sodium 140 mmol/L (136-145); Triglyceride 98 mg/dL (<150)
[2023-12-14 10:33] LABS: Microalb ug/mg Crea 12.2 ug/mg Cr
== END 2023-12-14 10:07 | disposition home or self-care (01) ==
LOC: LBO 10:07
PROVIDERS: PCP Nurse Practitioner Adult Health; Visit Provider Nurse Practitioner Adult Health
DX: E11.29 Type 2 diabetes mellitus with other diabetic kidney complication (principal); R80.9 Proteinuria, unspecified; E78.5 Hyperlipidemia, unspecified; I10 Essential (primary) hypertension
CPT/HCPCS: 36415; 80048; 80061; 82043; 82570; 83036

== ENCOUNTER → 2023-12-29 03:19 | Outpatient (CLI) | payer MEDICARE, BC, SELFPAY ==
--- NOTE | 2023-12-29 08:45 | DI.MAMMO_ITS ---
Exam(s) MAMMO SCREENING EXAM: MAMMO SCREENING CLINICAL HISTORY: screening,Z12.39 TECHNIQUE: Mammograms were interpreted according to the usual protocol including computer analysis w [id number] CAD system, tomosynthesis and C-view imaging. COMPARISON: 2014 through 2020 FINDINGS: The breasts are composed of mainly fatty density , Breast Density category A. No suspicious masses or suspicious microcalcifications are seen. No skin thickening or abnormal axillary lymph nodes are seen. There has been no significant change from prior exams. IMPRESSION: BI-RADS Category 1, Negative mammogram Yearly screening mammography is recommended. Breast Density - Category A, fatty density. A negative radiographic report should not delay biopsy if a dominant or clinically suspicious mass is present. Up to ten percent of cancers are not identified on mammography. A negative report may reinforce clinical impression. Adenosis and dense breasts may obscure an underlying neoplasm. False positive reports average 6 to 10%. Patient will receive a letter notifying them of these results.
== END ==
PROVIDERS: PCP Nurse Practitioner Adult Health; Visit Provider Nurse Practitioner Adult Health
DX: Z12.31 Encounter for screening mammogram for malignant neoplasm of breast (principal)
CPT/HCPCS: 77063; 77067

== ENCOUNTER 2025-02-02 00:46 | Outpatient (CLI) | payer MEDICARE, BC, SELFPAY ==
[2025-02-02 09:47] LABS: Hemoglobin A1C 5.5 % (<5.7)
[2025-02-02 09:51] LABS: COMMENT (LAB VIEW ONLY) 21.25 mg/dL; Microalb ug/mg Crea 7.1 ug/mg Cr
[2025-02-02 09:54] LABS: Anion Gap 5.7 mmol/L (3-11); BUN 18 mg/dL (7-18); CO2 28.3 mmol/L (21.0-32.0); CREATININE 0.9 mg/dL (0.55-1.02); Calcium 9.6 mg/dL (8.5-10.1); Calculated LDL 83 mg/dL (<100); Chloride 108 mmol/L (98-107); Cholesterol 154 mg/dL (<200); Estimated GFR 67.08 (mL/min/1.73m2); Glucose 80 mg/dL (74-106); HDL Cholesterol 56 mg/dL (>or=50); Potassium 4.5 mmol/L (3.5-5.1); Sodium 142 mmol/L (136-145); Triglyceride 76 mg/dL (<150)
== END 2025-02-02 00:47 | disposition home or self-care (01) ==
PROVIDERS: PCP Nurse Practitioner Adult Health; Visit Provider Nurse Practitioner Adult Health
DX: R80.9 Proteinuria, unspecified (principal); E11.29 Type 2 diabetes mellitus with other diabetic kidney complication; I10 Essential (primary) hypertension; E78.5 Hyperlipidemia, unspecified
CPT/HCPCS: 36415; 80048; 80061; 82043; 82570; 83036

== ENCOUNTER 2025-02-20 00:08 | Outpatient (CLI) | payer MEDICARE, BC, SELFPAY ==
--- NOTE | 2025-02-20 06:45 | DI.CT_ITS ---
Exam(s) CT ABDOMEN PELVIS W EXAM: CT ABDOMEN PELVIS W CLINICAL HISTORY: ? diverticulitis or other acute process,ABD CRAMPING,LLQ ABD TENDERNESS. TECHNIQUE: Imaging Protocol: Axial computed tomography images with coronal and sagittal reformatted images were created and reviewed CONTRAST MATERIAL: Intravenous: Omnipaque 350 Contrast volume:100 ml Oral: yes no COMPARISON: No exams were available for comparison FINDINGS: ABDOMEN and PELVIS: Lung Bases: No acute findings. Liver: Normal density. No suspicious mass. Gallbladder and biliary tract: Multiple stones noted in the gallbladder. No wall thickening or peric holecystic fluid. No biliary dilation. Pancreas: Normal density. No abnormal calcifications or inflammatory process. No evidence of mass. Spleen: Normal. Kidneys: Normal size, contour and axis. No radiodense stones. No obstructive uropathy. No suspicious masses seen. Adrenal glands: No masses seen. Vasculature: Abdominal aorta non-dilated. Soft tissues: Unremarkable. Bladder: Partially obscured by artifact from hip prosthesis. No gross wall thickening. No calculi.No focal mass. Bowel: No obstruction. No bowel wall thickening. Appendix normal. Diverticulosis of the descending and sigmoid colon. Peritoneal cavity: No ascites. No focal collection. No mesenteric inflammatory response. No free air . Bones: Bilateral hip prostheses. Degenerative changes and scoliosis noted in the lumbar spine. Reproductive organs: Partially obscured by artifact from hip prosthesis. Grossly unremarkable. Lymph nodes: No pathologically enlarged lymph nodes. IMPRESSION:: No acute abnormality in the abdomen or pelvis. Diverticulosis without evidence of diverticulitis. Cholelithiasis. No evidence of acute cholecystitis. RADIATION DOSE DELIVERED: 532.23mGy.cm Total DLP DATA REPOSITORY: All CT scans at this facility are submitted to the National Radiology Data Registry (NRDR) Dose Index Registry (DIR) with the [employer] ([employer]). RADIATION OPTIMIZATION: All CT scans at this facility use at least one of these dose optimization te chniques: automated exposure control; mA and/or kV adjustment per patient size (includes targeted exa ms where dose is matched to clinical indication); or iterative reconstruction.
[2025-02-20] MEDS: Barium Sulfate 2% W/V-Creamy Vanilla Smoothie 450 ML BTL PO (10:24)
[2025-02-20] MEDS: Barium Sulfate 2% W/V-Berry Smoothie 450 ML BTL PO (10:26)
[2025-02-20] MEDS: Omnipaque 350 MG/ML 100 ML BTL 75 ML IJ (12:17)
[2025-02-20] MEDS: Normal Saline - Diluent 50 ML VIAL IJ (12:19)
== END 2025-02-20 00:28 ==
LOC: DI 00:08
PROVIDERS: PCP Nurse Practitioner Adult Health; Visit Provider Nurse Practitioner Adult Health
DX: K57.30 Diverticulosis of large intestine without perforation or abscess without bleeding; K80.80 Other cholelithiasis without obstruction
CPT/HCPCS: 74177; J3490